=== PATIENT | female | born 1970 | race Two or more races ===

== ENCOUNTER 2023-02-25 19:46 | Emergency (ER) | payer OTHER ==
[~2023-02-25] VITALS: Ht 157.5 cm; Wt 80.7 kg
[2023-02-25] MEDS ORDERED: DILTIAZEM 24HR180 MG PO (19:53)
[2023-02-25] MEDS ORDERED: CHILDREN'S ASPI81 MG PO (19:53)
[2023-02-25] MEDS ORDERED: CRESTOR20 MG PO (19:53)
[2023-02-25] MEDS ORDERED: COZAAR25 MG PO (19:54)
[2023-02-25 20:39] LABS: HEMOGLOBIN 12.3 g/dL (12.0-15.00); MEAN CELL VOLUME 84.4 fL (80.00-100.00); MEAN CORPUSCULAR HEMOGLOBIN 28.9 pg (27.00-32.0); MEAN CORPUSCULAR HGB CONC 34.3 g/dl (32.0-36.0); PLATELET COUNT 323 K/uL (150-450); RED BLOOD COUNT 4.26 M/uL (4.00-6.00); RED CELL DISTRIBUTION WIDTH 13.6 % (11.5-14.5)
[2023-02-25 22:02] LABS: CREATININE SERUM 0.65 mg/dL (0.55-1.02); GFR 95.72; POTASSIUM 3.76 mEq/L (3.5-5.1)
[2023-02-25 23:33] LABS: ABG PH 7.427 (7.35-7.45); ABG PO2 106.1 mmHg (80-100); ABG pCO2 34.6 mmHg (35-45); BASE EXCESS -1.4 mmol/l; BICARBONATE 22.3 mmol/l (23-25); SaO2 98.2 %; Tco2 23.3 mmol/l; o2 21 %; puncture site RADIAL RIGHT
[2023-02-25 23:34] LABS: allen test SATISFACTORY
== END 2023-02-25 22:56 | disposition home or self-care (01) ==
LOC: EMR PED 19:46 → ER 19:46
PROVIDERS: General Practice
DX: J06.9 Acute upper respiratory infection, unspecified (principal); Z20.822 Contact with and (suspected) exposure to COVID-19